=== PATIENT | female | born 1970 | race Caucasian/White ===

== ENCOUNTER 2020-09-06 11:22 | Emergency (ER) | payer MEDICAID, SELFPAY ==
[2020-09-06] VITALS (7 sets, daily range): BP systolic 123–163; BP diastolic 64–106; PULSE 91–145; RESP 14–18; TEMP 37–37.3; O2SAT 93–97; BMI 37.6
--- NOTE | 2020-09-06 11:53 | XR_ITS ---
EXAMINATION: XR CHEST CLINICAL INFORMATION: Chest pain COMPARISON: None TECHNIQUE: AP portable view of the chest was obtained. FINDINGS: There is a discoid region of density at the left base which may be related to atelectasis. No pneumothorax or pleural effusion. No dense consolidation of lung. Heart normal size. No evidence of pulmonary edema. XR/XR chest 1V IMPRESSION: No significant acute parenchymal disease identified.
--- NOTE | 2020-09-06 11:53 | ECG_ITS ---
Test Reason : ED Blood Pressure : / mmHG Vent. Rate : 126 BPM Atrial Rate : 126 BPM P-R Int : 128 ms QRS Dur : 070 ms QT Int : 332 ms P-R-T Axes : 077 002 045 degrees QTc Int : 480 ms Sinus tachycardia Otherwise normal ECG No previous ECGs available Referred By: Catherine Naik Electronically Signed By:LIANNE CARRASCO MD
--- NOTE | 2020-09-06 11:54 | ED_ITS ---
HPI - Chest Pain General Chief Complaint: Chest Pain Stated Complaint: CHEST PAIN Time Seen by Provider: 09/06/20 11:46 Source: patient and EMS Mode of arrival: EMS History of Present Illness HPI narrative: 50-year-old female with a past medical history of anxiety, depression, GERD, herniated discs, BIBA complaining of substernal chest pressure x4 days with associated nausea and vomiting. Admits symptoms have been constant since start, worse with eating. Patient was given 324 ASA and 3 nitro sprays via EMS with symptomatic improvement. Reports chronic cough due to smoking. Denies fever, chills, cough, LE edema, history clots MD complaint: chest pain Related Data Home Medications Medication Instructions Recorded Confirmed Atarax 09/06/20 Flexeril 09/06/20 Flonase 09/06/20 Lexapro 09/06/20 Motrin 09/06/20 Neurontin 09/06/20 Nicoderm 09/06/20 Pepcid 09/06/20 Protonix 09/06/20 Remeron 09/06/20 Wellbutrin XL 09/06/20 Zyprexa 09/06/20 lisinopril 09/06/20 loratadine 09/06/20 thiamine HCl (vitamin B1) 09/06/20 09/06/20 trazodone 09/06/20 Previous Rx's Medication Instructions Recorded alum-mag hydroxide-simeth [Maalox 10 ml PO QID PRN #3000 ml 09/06/20 Advanced] lidocaine HCl [Lidocaine Viscous] 1 appl MUCOUS MEMBRANE BID PRN 09/06/20 #100 ml Allergies Allergy/AdvReac Type Severity Reaction Status Date / Time Penicillins Allergy Hives Verified 09/06/20 11:38 seafood Allergy Hives Verified 09/06/20 11:38 Review of Systems Review of Systems: Constitutional: No Weight loss, No Fever, No Chills Cardiovascular: + Chest Pain, +Chronic SOB, No Edema, No Palpitations Respiratory: No Cough, No Sputum, No Wheezing Gastrointestinal: + Nausea, + Vomiting, No Diarrhea, No Constipation, NO Abdominal pain Musculoskeletal: No joint pain, No Myalgias, No Joint Swelling Skin: No Skin Lesions, No rash Yes all other systems are reviewed and are negative [facility] Past Medical History Attestation statement: The following information was validated with the patient. Medical History (Updated 09/06/20 @ 16:43 by ESTRELLA Hurley) Anxiety Depression GERD (gastroesophageal reflux disease) Herniated cervical disc Social History Social History Smoking Status: Current every day smoker Smoked in Last 30 Days: Yes Use of substances other than those prescribed or required for medical reasons: No Advance Directives: No Advance Directives Information Provided: No Physical Exam Vital Signs: Vital Signs: Last Vital Signs Temp 99.1 F 09/06/20 15:45 Pulse 121 H 09/06/20 17:25 Resp 18 09/06/20 15:45 BP 143/70 H 09/06/20 17:25 Pulse Ox 97 09/06/20 15:45 Body Mass Index 37.6 Const: General: cooperative and healthy appearing Orientation/consciousness: patient oriented x3 Limitations: no limitations HENMT: Head: Yes normal to inspection Ears: hearing grossly normal bilater ally General nose exam: Normal external nose present Face and sinus: Yes normal facial exam Eyes: General: appearance normal, both eyes and all related structures EOM: EOMs intact bilaterally Neck: Neck: Yes normal visual inspection Resp: Effort & Inspection: normal respiratory effort Auscultation: clear to auscultation bilaterally, no crackles, no rales, no rhonchi and no wheezes Cardio: Rate: regular rate Heart sounds: S1 normal heart sound present and S2 normal heart sound present GI: Inspection: Yes normal to inspection Palpation (GI): Soft to palpation, Tenderness to palpation present (GI) in the epigastrum, no guarding and not rigid Skin: Rashes: no rashes Wounds: no wounds Neuro: General: patient oriented x3 Gait exam (Neuro): Normal gait present Extrem: Other: No LE edema or calf tenderness General: Yes normal to inspection Course Course Course Narrative: * AST/ALT mildly elevated * CXR unremarkable * 1408--D-dimer elevated at 756 > will obtain CTA to rule out PE * Troponin 18, EKG nonischemic with sinus tachycardia > will obtain 3hr repeat * 1632-- repeat troponin 20.8 > RI unlikely, no 50% delta * CT without evidence of PE, dissection, or aneurysm. Dependent atelectasis. Asymmetric soft tissue density right breast and fatty infiltration of the liver > no appreciable breast infection on exam. Discussed with patient importance of mammograms * 5057-- TSH WNL. Will give patient oral dose of lisinopril in the ED today as did not take for the past 3 days * Patient is able to tolerate p.o. medications in the ED with mild discomfort. Case discussed with Dr. Huffman, will also give 50 mg of p.o. Metoprolol to aid with heart rate prior to d/c home * 1800-- ED care transferred to [facility] pending re-evaluation after Metoprolol MDM - Chest Pain MDM Narrative Medical decision making narrative: 50-year-old female with a past medical history of anxiety, depression, GERD, herniated discs, BIBA complaining of substernal chest pressure x4 days with associated nausea and vomiting. On exam tachycardic, NAD/nontoxic appearing, lungs CTA, abdomen soft epigastric tenderness, no rebound or guarding. Symptoms more consistent with GERD. R/o ACS. Lower concern for CHF, PE, COVID-19/viral syndrome Plan: EKG, labs, CXR, troponin x2, symptomatic therapy/reassess Lab Data Result diagrams: 09/06/20 12:03 09/06/20 12:03 Labs: Lab Results 09/06/20 09/06/20 09/06/20 Range/Units 12:03 12:03 12:03 WBC 9.8 (4.8-10.8) X10*3/uL RBC 4.15 L (4.20-5.50) X10*6/uL Hgb 12.9 (12.0-16.0) g/dl Hct 40.1 (37-47) % MCV 96.6 (80-98) fL MCH 31.1 (27.0-33.0) pg MCHC 32.2 (31.0-35.0) g/dl RDW 15.9 (11.0-16.0) % Plt Count 211 (160-400) X10*3/uL MPV 9.6 (9.4-12.3) fL Immature Gran % (Auto) 0.3 (0.0-0.4) % Neut % (Auto) 77.5 H (45-73) % Lymph % (Auto) 13.9 L (20-40) % Navarro % (Auto) 7.7 (2-11) % Eos % (Auto) 0.4 (0-4) % Baso % (Auto) 0.2 (0-2) % Lymph # (Auto) 1.4 (1.2-4.9) X10*3/uL Navarro # (Auto) 0.8 (0.1-1.2) X10*3/uL Eos # (Auto) 0.0 (0.0-0.4) X10*3/uL Baso # (Auto) 0.0 (0.0-0.2) X10*3/uL Abs Immat Gran (auto) 0.03 (0.00-0.03) X10*3/uL Absolute Neuts (auto) 7.6 (2.0-8.3) X10*3/uL Absolute Nucleated RBC 0.000 (0.0-0.012) X10*3/uL Nucleated RBC % (auto) 0.0 (0.0-0.2) /100WBC PT 12.1 (10.8-13.0) SEC INR 1.0 (0.9-1.1) APTT 30.3 (24.1-38.0) SEC D-Dimer 756 NG/ML Hold Blue Top SEE NOTE Sodium 135 (135-145) mmol/L Potassium 3.8 (3.3-5.1) mmol/l Chloride 89 L (96-108) mmol/L Carbon Dioxide 33 H (22-29) mmol/L Anion Gap 17 (12-20) BUN 10 (9-16) mg/dL Creatinine 0.82 (0.5-1.4) mg/dL Estim Creat Clear Calc 85.3 Estimated GFR > 60 Random Glucose 98 (60-115) mg/dL Calcium 8.8 (8.4-10.2) mg/dL Magnesium 1.9 (1.6-2.6) mg/dL Total Bilirubin 0.8 (0.0-1.0) mg/dL Direct Bilirubin 0.5 (0.0-0.5) mg/dL AST 48 H (5-31) U/L ALT 56 H (0-31) U/L Alkaline Phosphatase 92 (39-117) U/L Troponin I High Sens (<3.5-17.0) ng/L B-Natriuretic Peptide (<100) pg/mL Total Protein 6.7 (6.5-8.0) g/dL Albumin 4.0 (3.5-5.0) g/dL Lipase 18 (8-78) U/L TSH 0.97 (0.32-4.0) mIU/mL 09/06/20 09/06/20 09/06/20 Range/Units 12:03 12:47 15:28 WBC (4.8-10.8) X10*3/uL RBC (4.20-5.50) X10*6/uL Hgb (12.0-16.0) g/dl Hct (37-47) % MCV (80-98) fL MCH (27.0-33.0) pg MCHC (31.0-35.0) g/dl RDW (11.0-16.0) % Plt Count (160-400) X10*3/uL MPV (9.4-12.3) fL Immature Gran % (Auto) (0.0-0.4) % Neut % (Auto) (45-73) % Lymph % (Auto) (20-40) % Navarro % (Auto) (2-11) % Eos % (Auto) (0-4) % Baso % (Auto) (0-2) % Lymph # (Auto) (1.2-4.9) X10*3/uL Navarro # (Auto) (0.1-1.2) X10*3/uL Eos # (Auto) (0.0-0.4) X10*3/uL Baso # (Auto) (0.0-0.2) X10*3/uL Abs Immat Gran (auto) (0.00-0.03) X10*3/uL Absolute Neuts (auto) (2.0-8.3) X10*3/uL Absolute Nucleated RBC (0.0-0.012) X10*3/uL Nucleated RBC % (auto) (0.0-0.2) /100WBC PT (10.8-13.0) SEC INR (0.9-1.1) APTT (24.1-38.0) SEC D-Dimer NG/ML Hold Blue Top Sodium (135-145) mmol/L Potassium (3.3-5.1) mmol/l Chloride (96-108) mmol/L Carbon Dioxide (22-29) mmol/L Anion Gap (12-20) BUN (9-16) mg/dL Creatinine (0.5-1.4) mg/dL Estim Creat Clear Calc Estimated GFR Random Glucose (60-115) mg/dL Calcium (8.4-10.2) mg/dL Magnesium (1.6-2.6) mg/dL Total Bilirubin (0.0-1.0) mg/dL Direct Bilirubin (0.0-0.5) mg/dL AST (5-31) U/L ALT (0-31) U/L Alkaline Phosphatase (39-117) U/L Troponin I High Sens 18.0 H 20.8 H (<3.5-17.0) ng/L B-Natriuretic Peptide 47 (<100) pg/mL Total Protein (6.5-8.0) g/dL Albumin (3.5-5.0) g/dL Lipase (8-78) U/L TSH (0.32-4.0) mIU/mL Discharge Plan Discharge Clinical Impression: Atypical chest pain Patient Disposition: Home, Self-Care Instructions: Chest Pain (ED) Additional Instructions: Your blood work and imaging studies are reassuring today in the ED Continue to take previously prescribed medications In addition take Maalox and previsouly prescribed Omeprazole, which should help with the pain. Viscous Lidocaine is a numbing medication, take as prescribed as needed for pain as well You need to stay hydrated & follow-up with your doctor You should establish care with a conditioner tumbler and datastage developer If your symptoms persist or worsen, chest pain becomes constant, you have shortness of breath, or fever, or unable to eat or drink return to the ED Prescriptions: New Lidocaine Viscous 2 % solution 1 appl mucous membrane BID PRN (Reason: pain) Qty: 100 RF: 0 alum-mag hydroxide-simeth [Maalox Advanced] 200-200-20 mg/5 mL suspension 10 ml PO QID PRN (Reason: dyspepsia) Qty: 3000 RF: 0 No Action Atarax RF: 0 Flexeril RF: 0 Flonase RF: 0 Lexapro RF: 0 Motrin RF: 0 Neurontin RF: 0 Nicoderm RF: 0 Pepcid RF: 0 Protonix RF: 0 Remeron RF: 0 Wellbutrin XL RF: 0 Zyprexa RF: 0 lisinopril RF: 0 loratadine RF: 0 thiamine HCl (vitamin B1) RF: 0 trazodone RF: 0 Referrals: Roberto Carlos Meza MD [Physician] - 5 days Physician,None [Primary Care Provider] - 2 days Néstor Quiñones MD [Physician] - 1 week
[2020-09-06 12:11] LABS: MANUAL DIFF FLAG NO
[2020-09-06 12:12] LABS: Basophils Percent Auto 0.2 % (0-2); Eosinophils Percent Auto 0.4 % (0-4); Hematocrit 40.1 % (37-47); Hemoglobin 12.9 g/dl (12.0-16.0); Imm Gran Abs Auto 0.03 X10*3/uL (0.00-0.03); Imm Gran Pct Auto 0.3 % (0.0-0.4); Lymphocytes Absolute Auto 1.4 X10*3/uL (1.2-4.9); Lymphocytes Percent Auto 13.9 % (20-40); Mean Corpuscular HGB Conc 32.2 g/dl (31.0-35.0); Mean Corpuscular Hemoglobin 31.1 pg (27.0-33.0); Mean Corpuscular Volume 96.6 fL (80-98); Mean Platelet Volume 9.6 fL (9.4-12.3); Monocytes Absolute Auto 0.8 X10*3/uL (0.1-1.2); Monocytes Percent Auto 7.7 % (2-11); Neutrophils Absolute Auto 7.6 X10*3/uL (2.0-8.3); Neutrophils Percent Auto 77.5 % (45-73); Platelet Count 211 X10*3/uL (160-400); Red Blood Count 4.15 X10*6/uL (4.20-5.50); Red Cell Distribution Width 15.9 % (11.0-16.0); White Blood Count 9.8 X10*3/uL (4.8-10.8)
[2020-09-06] MEDS: Famotidine/PF 20 MG/2 ML VIAL IVPUSH (12:20)
[2020-09-06] MEDS: Magnesium Hydrox/Alum Hydrox 30 ML ORAL.SUSP PO (12:20)
[2020-09-06 12:37] LABS: Alanine Aminotransferase 56 U/L (0-31); Alkaline Phosphatase 92 U/L (39-117); Anion Gap 17 (12-20); Aspartate Amino Transferase 48 U/L (5-31); Bilirubin Direct 0.5 mg/dL (0.0-0.5); Bilirubin Total 0.8 mg/dL (0.0-1.0); Blood Urea Nitrogen 10 mg/dL (9-16); Calcium 8.8 mg/dL (8.4-10.2); Carbon Dioxide 33 mmol/L (22-29); Chloride 89 mmol/L (96-108); Creatinine Clr Calc Pharmacy 85.3; Estimated Glomerular Filt Rate > 60; Glucose Random 98 mg/dL (60-115); Lipase 18 U/L (8-78); Magnesium 1.9 mg/dL (1.6-2.6); Potassium 3.8 mmol/l (3.3-5.1); Sodium 135 mmol/L (135-145); Total Protein 6.7 g/dL (6.5-8.0)
[2020-09-06 12:44] LABS: B Type Natriuretic Peptide 47 pg/mL (<100)
[2020-09-06 13:23] LABS: Prothrombin Time 12.1 SEC (10.8-13.0)
[2020-09-06 13:26] LABS: D Dimer 756 NG/ML; Partial Thromboplastin Time 30.3 SEC (24.1-38.0)
[2020-09-06] MEDS: 0.9 % Sodium Chloride 1,000 ML 999 ML IVCONT (13:50)
--- NOTE | 2020-09-06 14:09 | CT_ITS ---
EXAMINATION: CT ANGIOGRAM OF THE CHEST WITH AND WITHOUT CONTRAST (CT PULMONARY ANGIOGRAM FOR PE) CLINICAL INFORMATION: Reason for Exam Elevated D-dimer. Tachycardia. COMPARISON: None TECHNIQUE: Prior to contrast administration, noncontrast localization images were obtained. Subsequently, multidetector volumetric imaging was performed from the thoracic inlet to below the diaphragms following the administration of 80 mL Omnipaque 350 intravenous contrast. No contrast reaction reported Sagittal, coronal, and MIP oblique sagittal reformatted images were obtained on the CT workstation, uploaded to PACS, and reviewed. This CT examination was performed using dose optimization techniques as appropriate, variously including the following: *Automated exposure control *Adjustment of mA and/or kV according to patient size (this includes techniques or standardized protocols for targeted exams where dose is matched to indication/reason for exam; i.e. extremities or head) *Use of iterative reconstruction technique Total exam dose-length product 294 mGy-cm FINDINGS: QUALITY OF STUDY/CONTRAST BOLUS: Satisfactory. PULMONARY ARTERIES: No central or segmental pulmonary emboli. THORACIC AORTA: No aneurysm or dissection. LUNG: The lungs are well-expanded without acute pneumonic process. No pulmonary nodule or mass seen. There is dependent bibasilar atelectasis. PLEURA: No pleural effusion or pneumothorax. MEDIASTINUM: Normal heart size. No pericardial effusion. No hilar or mediastinal lymphadenopathy. No evidence of septal bowing or right heart strain. CHEST WALL/AXILLA: No axillary or internal mammary lymphadenopathy. There is asymmetry in the subareolar soft tissue densities, suspicious for likely mass.. OSSEOUS STRUCTURES: There is diffuse fatty infiltration of liver with areas of focal fatty sparing along the ligament. UPPER ABDOMEN: Unremarkable. No reflux of contrast into the hepatic veins to suggest elevated right heart pressures. CT/CT angio chest PE protocol IMPRESSION: No evidence of PE. No evidence of aortic dissection or aneurysm. Dependent bibasilar atelectasis. Asymmetric soft tissue density right breast retroareolar area. Correlate with clinical exam and if necessary with mammography. Diffuse fatty infiltration of liver without focal lesion. VTE: negative
[2020-09-06] MEDS: iohexoL 350 MG/ML 100 ML INFUS..BTL IV (15:04)
[2020-09-06] MEDS: LORazepam 1 MG TABLET PO (15:30)
[2020-09-06 16:24] LABS: Troponin-I High Sensitivity 20.8 ng/L (<3.5-17.0)
[2020-09-06 17:10] LABS: TSH reflex Free T4 0.97 mIU/mL (0.32-4.0)
[2020-09-06] MEDS: Lidocaine HCl Viscous 2 % 15 ML SOLUTION MUCOUS MEM (17:24)
[2020-09-06] MEDS: lisinopriL 10 MG TABLET PO (17:25)
[2020-09-06] MEDS: Acetaminophen 325 MG TABLET 650 MG PO (17:25)
--- NOTE | 2020-09-06 18:33 | PC.NURSE ---
Pt removed water trainer. Refuses to wear it at this time. Agreeable to keep 02 sensor on finger.
[2020-09-06] MEDS: Metoprolol Tartrate 50 MG TABLET PO (18:40)
== END 2020-09-06 19:56 | disposition home or self-care (01) ==
PROVIDERS: Physician Assistant; Emergency Provider Emergency Medicine
DX: R07.89 Other chest pain (principal); F17.200 Nicotine dependence, unspecified, uncomplicated
CPT/HCPCS: 36415; 71045; 71275; 80048; 80076; 83690; 83735; 83880; 84443; 84484; 85025; 85379; 85610; 85730; 93005; 96361; 96374; 99284; Q9967

== ENCOUNTER 2020-11-11 05:47 | Emergency (ER) | payer OTHER, SELFPAY ==
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
[2020-11-11 05:52] VITALS: BP 163/97; PULSE 122; RESP 20; TEMP 36.7; O2SAT 96; BMI 36.6
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
[2020-11-11] MEDS: Magnesium Hydrox/Alum Hydrox 30 ML ORAL.SUSP PO (07:22)
[2020-11-11] MEDS: Lidocaine HCl Viscous 2 % 15 ML SOLUTION 10 ML MUCOUS MEM (07:22)
== END 2020-11-11 07:27 | disposition home or self-care (01) ==
PROVIDERS: Emergency Provider Student in an Organized Health Care Education/Training Program
DX: F10.920 Alcohol use, unspecified with intoxication, uncomplicated (principal); S05.12XA Contusion of eyeball and orbital tissues, left eye, initial encounter; Y04.2XXA Assault by strike against or bumped into by another person, initial encounter; Y93.9 Activity, unspecified; Y92.9 Unspecified place or not applicable; Y99.9 Unspecified external cause status; F41.9 Anxiety disorder, unspecified; F32.9 Major depressive disorder, single episode, unspecified
CPT/HCPCS: 70480; 99283; 99284

== ENCOUNTER 2020-12-06 19:43 | Emergency (ER) | payer OTHER, SELFPAY ==
--- NOTE | ~2020-12-06 | XR_ITS ---
EXAMINATION: CHEST 1 VIEW CLINICAL INFORMATION: Pneumonia. COMPARISON: 09/06/2020. TECHNIQUE: An AP view of the chest is provided. FINDINGS: The cardiac silhouette is not enlarged. The mediastinal and hilar contours are unremarkable. There are neither pleural effusions nor pneumothoraces. There are no consolidations. The osseous structures are stable. XR/XR chest 1V IMPRESSION: No evidence for acute disease.
[2020-12-06 20:00] VITALS: BP 147/99; BP 150/100; PULSE 118; PULSE 124; RESP 16; TEMP 37.1; O2SAT 98; BMI 36.6
--- NOTE | 2020-12-06 20:50 | ECG_ITS ---
Test Reason : ETOH Blood Pressure : / mmHG Vent. Rate : 107 BPM Atrial Rate : 107 BPM P-R Int : 152 ms QRS Dur : 072 ms QT Int : 364 ms P-R-T Axes : 074 013 052 degrees QTc Int : 485 ms Sinus tachycardia Otherwise normal ECG When compared with ECG of 06-SEP-2020 11:57, No significant change was found Referred By: Mazin Valle Electronically Signed By:WILLY QUIGLEY
--- NOTE | 2020-12-06 20:51 | ED.GENADULT ---
HPI - General Adult General Chief complaint: ETOH/Substance Use Stated complaint: etoh Time Seen by Provider: 12/07/20 01:28 History of Present Illness HPI narrative: Patient presents to ED for alcohol detox. Patient states last drink was 17:00. Patient states having the shakes when she had multiple withdrawal. Patient states usually she of withdrawal she has seizures. Related Data Home Medications Medication Instructions Recorded Confirmed Atarax 09/06/20 Flexeril 09/06/20 Flonase 09/06/20 Lexapro 09/06/20 Motrin 09/06/20 Neurontin 09/06/20 Nicoderm 09/06/20 Pepcid 09/06/20 Protonix 09/06/20 Remeron 09/06/20 Wellbutrin XL 09/06/20 Zyprexa 09/06/20 lisinopril 09/06/20 loratadine 09/06/20 thiamine HCl (vitamin B1) 09/06/20 09/06/20 trazodone 09/06/20 Previous Rx's Medication Instructions Recorded alum-mag hydroxide-simeth [Maalox 10 ml PO QID PRN #3000 ml 09/06/20 Advanced] lidocaine HCl [Lidocaine Viscous] 1 appl MUCOUS MEMBRANE BID PRN 09/06/20 #100 ml Allergies Allergy/AdvReac Type Severity Reaction Status Date / Time Penicillins Allergy Hives Verified 11/11/20 05:57 seafood Allergy Hives Verified 11/11/20 05:57 Review of Systems Review of Systems: Yes all other systems are reviewed and are negative Constitutional: Constitutional: Reports as per HPI and Reports no additional constitutional complaints Eyes: Eyes: Reports as per HPI and Reports no additional eye complaints ENT: Reports system reviewed and no additional complaints, except as documented and Reports as per HPI Cardiovascular: Cardiovascular: Reports as per HPI and Reports no additional cardiovascular complaints Respiratory: Respiratory: Reports as per HPI Gastrointestinal: Gastrointestinal: Reports as per HPI and Reports no additional gastrointestinal complaints Genitourinary: Genitourinary: Reports no additional female genitourinary complaints and Reports as per HPI Musculoskeletal: Musculoskeletal: Reports no additional musculoskeletal complaints and Reports as per HPI Neurologic: Reports system reviewed and no additional complaints, except as documented and Reports as per HPI Psychiatric: Psychiatric: Reports no additional psychiatric complaints and Reports as per HPI [facility] Past Medical History Medical History (Updated 12/06/20 @ 20:04 by Ruby Cotton) Anxiety Depression GERD (gastroesophageal reflux disease) Herniated cervical disc HTN (hypertension) Social History Social History Smoking Status: Current every day smoker Advance Directives: No Advance Directives Information Provided: Yes Physical Exam Vital Signs: Vital Signs: Last Vital Signs Temp 97.8 F 12/07/20 01:30 Pulse 101 H 12/07/20 01:30 Resp 16 12/07/20 01:30 BP 132/66 12/07/20 01:30 Pulse Ox 94 12/07/20 01:30 Body Mass Index 36.6 Const: General: cooperative, healthy appearing, comfortable, no acute distress, well developed, alert, awake and Physically active HENMT: Head: Yes normal to inspection, Yes No palpable skull fracture present, Yes normocephalic, Yes atraumatic and Yes abrasion Eyes: General: appearance normal, both eyes and all related structures Neck: Neck: Yes normal visual inspection, Yes full ROM, Yes no lymphadenopathy, Yes no meningeal signs, Yes trachea midline, Yes supple and No tender Chest: Chest palpation & inspection: normal inspection of the chest and normal palpation of entire chest wall Resp: Effort & Inspection: normal respiratory effort and able to speak in complete sentences Auscultation: clear to auscultation bilaterally Cardio: Jugular venous distension: no JVD Heart sounds: S1 normal heart sound present and S2 normal heart sound present GI: Inspection: Yes normal to inspection and No abdominal wall ecchymosis Palpation (GI): Soft to palpation, not firm, nontender, no guarding and not rigid : General: No CVA tenderness and Yes no CVA tenderness Back/Spine/Pelvis: Back: no CVA tenderness, No CVA tenderness and No back tenderness Skin: General skin exam: no rashes or lesions noted and elasticity normal Neuro: General: no meningeal signs and CN's II-XI intact bilaterally Cranial nerves: Yes CN's II-XII intact bilaterally Extrem: General: Yes normal to inspection and Yes full ROM Psych: Appearance: grossly normal, well kempt and not disheveled Course Course Course Narrative: Due to vital Signs patient will have labs, EKG, Ativan, and normal saline for alcohol withdrawal. Reevaluation(s) Reevaluation #1: Patient states she feels better and no longer having tremors. Patient's alcohol withdrawal resolved. Vital signs improved. Patient developed low-grade fever without any symptoms. COVID swab negative. Patient's chest x-ray negative for pneumonia. Care team consulted had other spoke with patient recommend patient stay in the morning to be evaluated by cross country and track and field coach to be placed in detox center. Case signed out to Dr. Huffman. UA negative for UTI. Medical Decision Making MDM Narrative Medical decision making narrative: Alcohol abuse Lab Data Result diagrams: 12/06/20 21:19 12/06/20 21:19 Labs: Lab Results 12/06/20 12/06/20 12/06/20 Range/Units 21:19 21:19 21:19 WBC 3.9 L (4.8-10.8) X10*3/uL RBC 4.53 (4.20-5.50) X10*6/uL Hgb 14.1 (12.0-16.0) g/dl Hct 42.7 (37-47) % MCV 94.3 (80-98) fL MCH 31.1 (27.0-33.0) pg MCHC 33.0 (31.0-35.0) g/dl RDW 16.3 H (11.0-16.0) % Plt Count 192 (160-400) X10*3/uL MPV 10.5 (9.4-12.3) fL Immature Gran % (Auto) 0.0 (0.0-0.4) % Neut % (Auto) 45.5 (45-73) % Lymph % (Auto) 42.1 H (20-40) % Storey % (Auto) 8.8 (2-11) % Eos % (Auto) 2.3 (0-4) % Baso % (Auto) 1.3 (0-2) % Lymph # (Auto) 1.6 (1.2-4.9) X10*3/uL Storey # (Auto) 0.3 (0.1-1.2) X10*3/uL Eos # (Auto) 0.1 (0.0-0.4) X10*3/uL Baso # (Auto) 0.1 (0.0-0.2) X10*3/uL Abs Immat Gran (auto) 0.00 (0.00-0.03) X10*3/uL Absolute Neuts (auto) 1.8 L (2.0-8.3) X10*3/uL Absolute Nucleated RBC 0.000 (0.0-0.012) X10*3/uL Nucleated RBC % (auto) 0.0 (0.0-0.2) /100WBC PT 11.7 (10.8-13.0) SEC INR 1.0 (0.9-1.1) APTT 36.8 D (24.1-38.0) SEC Sodium 146 H (135-145) mmol/L Potassium 3.4 (3.3-5.1) mmol/L Chloride 105 (96-108) mmol/L Carbon Dioxide 28 (22-29) mmol/L Anion Gap 16 (12-20) BUN 5 L (9-16) mg/dL Creatinine 0.67 (0.5-1.4) mg/dL Estim Creat Clear Calc 102.9 Estimated GFR > 60 Random Glucose 98 (60-115) mg/dL Calcium 8.5 (8.4-10.2) mg/dL Magnesium 1.7 (1.6-2.6) mg/dL Total Bilirubin 0.9 (0.0-1.0) mg/dL Direct Bilirubin 0.3 (0.0-0.5) mg/dL AST 136 H (5-31) U/L ALT 102 H (0-31) U/L Alkaline Phosphatase 105 (39-117) U/L Total Protein 6.9 (6.5-8.0) g/dL Albumin 3.9 (3.5-5.0) g/dL Ethyl Alcohol mg/dL COVID-19 ([facility]) COVID-19 Clin Com 12/06/20 12/07/20 12/07/20 Range/Units 21:19 00:07 00:21 WBC (4.8-10.8) X10*3/uL RBC (4.20-5.50) X10*6/uL Hgb (12.0-16.0) g/dl Hct (37-47) % MCV (80-98) fL MCH (27.0-33.0) pg MCHC (31.0-35.0) g/dl RDW (11.0-16.0) % Plt Count (160-400) X10*3/uL MPV (9.4-12.3) fL Immature Gran % (Auto) (0.0-0.4) % Neut % (Auto) (45-73) % Lymph % (Auto) (20-40) % Storey % (Auto) (2-11) % Eos % (Auto) (0-4) % Baso % (Auto) (0-2) % Lymph # (Auto) (1.2-4.9) X10*3/uL Storey # (Auto) (0.1-1.2) X10*3/uL Eos # (Auto) (0.0-0.4) X10*3/uL Baso # (Auto) (0.0-0.2) X10*3/uL Abs Immat Gran (auto) (0.00-0.03) X10*3/uL Absolute Neuts (auto) (2.0-8.3) X10*3/uL Absolute Nucleated RBC (0.0-0.012) X10*3/uL Nucleated RBC % (auto) (0.0-0.2) /100WBC PT (10.8-13.0) SEC INR (0.9-1.1) APTT (24.1-38.0) SEC Sodium (135-145) mmol/L Potassium (3.3-5.1) mmol/L Chloride (96-108) mmol/L Carbon Dioxide (22-29) mmol/L Anion Gap (12-20) BUN (9-16) mg/dL Creatinine (0.5-1.4) mg/dL Estim Creat Clear Calc Estimated GFR Random Glucose (60-115) mg/dL Calcium (8.4-10.2) mg/dL Magnesium (1.6-2.6) mg/dL Total Bilirubin (0.0-1.0) mg/dL Direct Bilirubin (0.0-0.5) mg/dL AST (5-31) U/L ALT (0-31) U/L Alkaline Phosphatase (39-117) U/L Total Protein (6.5-8.0) g/dL Albumin (3.5-5.0) g/dL Ethyl Alcohol 274 mg/dL COVID-19 ([facility]) Cancelled Negative COVID-19 Clin Com Cancelled See Note Discharge Plan Discharge Clinical Impression: Alcohol abuse Prescriptions: No Action Atarax RF: 0 Flexeril RF: 0 Flonase RF: 0 Lexapro RF: 0 Motrin RF: 0 Neurontin RF: 0 Nicoderm RF: 0 Pepcid RF: 0 Protonix RF: 0 Remeron RF: 0 Wellbutrin XL RF: 0 Zyprexa RF: 0 lisinopril RF: 0 loratadine RF: 0 thiamine HCl (vitamin B1) RF: 0 trazodone RF: 0 Lidocaine Viscous 2 % solution 1 appl mucous membrane BID PRN (Reason: pain) Qty: 100 RF: 0 alum-mag hydroxide-simeth [Maalox Advanced] 200-200-20 mg/5 mL suspension 10 ml PO QID PRN (Reason: dyspepsia) Qty: 3000 RF: 0
[2020-12-06 21:22] LABS: MANUAL DIFF FLAG NO
[2020-12-06 21:25] LABS: Basophils Absolute Auto 0.1 X10*3/uL (0.0-0.2); Basophils Percent Auto 1.3 % (0-2); Eosinophils Absolute Auto 0.1 X10*3/uL (0.0-0.4); Eosinophils Percent Auto 2.3 % (0-4); Hematocrit 42.7 % (37-47); Hemoglobin 14.1 g/dl (12.0-16.0); Lymphocytes Absolute Auto 1.6 X10*3/uL (1.2-4.9); Lymphocytes Percent Auto 42.1 % (20-40); Mean Corpuscular Hemoglobin 31.1 pg (27.0-33.0); Mean Corpuscular Volume 94.3 fL (80-98); Mean Platelet Volume 10.5 fL (9.4-12.3); Monocytes Absolute Auto 0.3 X10*3/uL (0.1-1.2); Monocytes Percent Auto 8.8 % (2-11); Neutrophils Absolute Auto 1.8 X10*3/uL (2.0-8.3); Neutrophils Percent Auto 45.5 % (45-73); Platelet Count 192 X10*3/uL (160-400); Red Blood Count 4.53 X10*6/uL (4.20-5.50); Red Cell Distribution Width 16.3 % (11.0-16.0); White Blood Count 3.9 X10*3/uL (4.8-10.8)
[2020-12-06] MEDS: LORazepam 2 MG/ML VIAL IVPUSH (21:25)
[2020-12-06] MEDS: 0.9 % Sodium Chloride 1,000 ML 999 ML IV (21:25)
[2020-12-06 21:33] LABS: Prothrombin Time 11.7 SEC (10.8-13.0)
[2020-12-06 21:35] VITALS: BP 140/75; PULSE 104; RESP 17; TEMP 36.6; O2SAT 99
[2020-12-06 21:35] LABS: Partial Thromboplastin Time 36.8 SEC (24.1-38.0)
[2020-12-06 21:48] LABS: Ethanol 274 mg/dL
[2020-12-06 21:52] LABS: Alanine Aminotransferase 102 U/L (0-31); Albumin Level 3.9 g/dL (3.5-5.0); Alkaline Phosphatase 105 U/L (39-117); Anion Gap 16 (12-20); Aspartate Amino Transferase 136 U/L (5-31); Bilirubin Direct 0.3 mg/dL (0.0-0.5); Bilirubin Total 0.9 mg/dL (0.0-1.0); Blood Urea Nitrogen 5 mg/dL (9-16); Calcium 8.5 mg/dL (8.4-10.2); Carbon Dioxide 28 mmol/L (22-29); Chloride 105 mmol/L (96-108); Creatinine Clr Calc Pharmacy 102.9; Estimated Glomerular Filt Rate > 60; Glucose Random 98 mg/dL (60-115); Potassium 3.4 mmol/L (3.3-5.1); Sodium 146 mmol/L (135-145); Total Protein 6.9 g/dL (6.5-8.0)
[2020-12-06 23:43] VITALS: BP 105/55; PULSE 96; RESP 16; TEMP 38.1; O2SAT 99
[2020-12-06 23:57] LABS: Magnesium 1.7 mg/dL (1.6-2.6)
[2020-12-07 00:46] LABS: COVID-19 Test Negative (Negative)
--- NOTE | 2020-12-07 01:08 | PC.NURSE ---
Xray is complete
[2020-12-07 01:30] VITALS: BP 132/66; PULSE 101; RESP 16; TEMP 36.6; O2SAT 94
[2020-12-07 01:44] LABS: Glucose Urine UA NEG (NEG); Leukocyte Esterase Urine NEG (NEG); Nitrite Urine NEG (NEG); Urine Blood TRACE (NEG); Urine Ketones NEG (NEG); Urine Protein TRACE MG/DL (NEG-TRACE)
[2020-12-07 01:45] LABS: Appearance Urine CLEAR; Color Urine DARK YELLOW
[2020-12-07 01:57] LABS: Bacteria Urine TRACE /LPF; Mucus Urine 3+ /LPF; Squamous Epithelial Cell Urine TRACE /LPF; WBC Urine 0-2 /HPF (0-4)
--- NOTE | 2020-12-07 02:32 | MHC.CARE ---
Late entry: CARE team support requested for pt who arrived to ED by ambulance, intoxicated, and has since requested support with getting into detox. Pt reported that she relapsed on alcohol in September following her brother's and a falling out with her . Pt was tearful and asking for help, stating that she can't go home because she may not be able to come back again. This functional tester typewriters spoke with ED provider re: pt remaining overnight for support with detox placement in the morning.
[2020-12-07] MEDS: LORazepam 1 MG TABLET PO (02:35)
[2020-12-07 04:00] VITALS: RESP 16
[2020-12-07 05:47] VITALS: BP 101/50; PULSE 99; RESP 16; TEMP 36.6; O2SAT 94
--- NOTE | 2020-12-07 07:15 | PC.NURSE ---
PT SLEEPING. 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 REFUSING BKFST AT THIS TIME
[2020-12-07 10:14] VITALS: BP 147/98; PULSE 113; RESP 18; O2SAT 92
[2020-12-07] MEDS: LORazepam 2 MG/ML VIAL IVPUSH (10:19)
--- NOTE | 2020-12-07 12:09 | PC.NURSE ---
pt asleep but easily arousable, no tremors noted at this time, pt appears calm and cooperative, pt easily falls back asleep
[2020-12-07 12:40] LABS: Glucose Urine UA NEG (NEG); Leukocyte Esterase Urine NEG (NEG); Nitrite Urine NEG (NEG); Urine Blood TRACE (NEG); Urine Ketones NEG (NEG); Urine Protein NEG (NEG-TRACE)
[2020-12-07 12:43] LABS: Appearance Urine CLEAR; Color Urine YELLOW
[2020-12-07 12:51] LABS: Bacteria Urine TRACE /LPF; Mucus Urine 2+ /LPF; RBC Urine 0-2 /HPF (0); Squamous Epithelial Cell Urine 1+ /LPF; WBC Urine 0-2 /HPF (0-4)
[2020-12-07 13:05] LABS: Amphetamine Screen Urine Not Detected (Not Detect); Barbiturates, Urine Not Detected (Not Detect); Benzodiazepines Screen Urine Not Detected (Not Detect); Cannabinoid Screen Urine Not Detected (Not Detect); Cocaine Screen Urine Not Detected (Not Detect); Opiate Screen Urine Not Detected (Not Detect); Phencyclidine Screen Urine Not Detected (Not Detect)
--- NOTE | 2020-12-07 13:13 | MHC.RECOVSUP ---
? Reason for consult: o Current location: o Identified substance use concern: - Overdose - Withdrawal - Seeking ATS (detox) - Support ? Intervention: o ATS bed search started/completed/in process o Community resources provided o Harm reduction discussion ? Plan: o o Bed search in progress to o Patient to follow up with [facility] after discharge ? Additional information: Looking for transport to [facility].
--- NOTE | 2020-12-07 13:38 | PC.NURSE ---
pt ambulates with brisk steady gait pt now has slight tremors, speaks in clear and even tones. pt has bed at detox in [place]. pt is aware, plan is to d/c to arrive at 1600.
[2020-12-07] MEDS: LORazepam 1 MG TABLET 2 MG PO (13:50)
--- NOTE | 2020-12-07 17:01 | MHC.CARE ---
ED/CARE team contacted by [facility] in [place], [place] regarding pt who arrived via Lyft who was expected for a 4pm intake at [facility] in [place] for detox admission. Pt was sent to the wrong facility when [employer] was ordered by power and recovery shift engineer. This abstract writer contacted [facility] re: the situation, and are able to be flexible with pt arriving 2 1/2 hours late. Lyft ordered again, same refuse driver will be transporting pt from [facility] to [facility]. Elliott noting is that pt is from [place] and moved to [facility] a few months ago, shortly before her relapse. Therefore, pt is not familiar with the area, which is unfortunate because this error may have been caught earlier.
== END 2020-12-07 14:54 | disposition home or self-care (01) ==
PROVIDERS: Physician Assistant; Emergency Provider Internal Medicine
DX: F10.130 Alcohol abuse with withdrawal, uncomplicated (principal); Y90.8 Blood alcohol level of 240 mg/100 ml or more; R50.9 Fever, unspecified; Z20.822 Contact with and (suspected) exposure to COVID-19; I10 Essential (primary) hypertension; K21.9 Gastro-esophageal reflux disease without esophagitis; F41.9 Anxiety disorder, unspecified; F17.200 Nicotine dependence, unspecified, uncomplicated; Z72.89 Other problems related to lifestyle; Z63.4 Disappearance and death of family member; Z79.899 Other long term (current) drug therapy
CPT/HCPCS: 36415; 71045; 80053; 80076; 80307; 80320; 81001; 83735; 85025; 85610; 85730; 87635; 93005; 96361; 96372; 96374; 99285; J2060